=== PATIENT | female | born 1975 | race Two or more races ===

== ENCOUNTER 2017-02-16 20:30 | Emergency (ER) | payer OTHER ==
[~2017-02-16] VITALS: Ht 162.6 cm; Wt 90.9 kg
[~2017-02-16 20:30] MED LIST: GABA100C PO; LEVO125T50 PO; MELO15TA14 PO; NPR250T1 PO; TYL325 PO
[2017-02-16 20:38] VITALS: BP 129/89; PULSE 64; RESP 15; O2SAT 97
[2017-02-16] MEDS ORDERED: Albuterol-Ipratropium 3 mL Inhalation Solution ONE (22:00)
[2017-02-16 22:08] VITALS: PULSE 76; RESP 18; O2SAT 99
[2017-02-16] MEDS ORDERED: Albuterol 2.5 mg/3 mL Inhalation Solution NEB ONE ×2 (22:13→22:15)
[2017-02-16] MEDS ORDERED: 0.9% Sodium Chloride 1,000 ML IV ONE (22:13)
[2017-02-16] MEDS ORDERED: MethylprednisoLONE Sodium Succinate 62.5 mg/mL 2 mL Inj IVPUSH ONE (22:15)
[2017-02-16 22:17] VITALS: PULSE 79; RESP 22; O2SAT 99
--- NOTE | 2017-02-16 22:26 | ED.REPORT ---
HPI-General Illness Date of Service Feb 16, 2017 ED Provider: Rolando Bellamy MD Patient is a 41 year old female with a history of asthma and hypertension who presents to the ED complaining of shortness of breath onset a week ago. Associated symptoms per the patient's spouse include an intermittent low grade fever, weakness and a productive cough with yellow sputum. She denies abdominal pain or vomiting. The patient's spouse reports that she has gotten progressively worse throughout the week. Patient states that she was seen when this first began and was given one dose of Prednisone. Nursing Notes Stated Complaint: ASTHMA, COUGHING, TROUBLE BREATHING Chief Complaint: Respiratory Complaints Nursing Notes Reviewed: Yes Allergies: Coded Allergies: No Known Allergies (Verified , 06/28/16) Scheduled Acetaminophen-Expunged Drug, Do Not Renew! (Tylenol-Expunged Drug, Do Not Renew! ) 325 Mg Tablet 650 MG PO Q4HP Azithromycin (Zithromax (Z-Jay)) 250 Mg Tablet 250 MG PO DIRECTED Take two tablets by mouth on day 1, then take one tablet daily on days 2 through 5. Gabapentin-Expunged Drug, Do Not Renew! (Neurontin-Expunged Drug, Do Not Renew! ) 100 Mg Capsule 100 MG PO TID Levothyroxine-Expunged Drug, Do Not Renew! (Levoxyl-Expunged Drug, Do Not Renew! ) 125 Mcg Tablet 125 MCG PO DAILY Naproxen-Expunged Drug, Do Not Renew! (Naprosyn-Expunged Drug, Do Not Renew!) 250 Mg Tab 750 MG PO BID Prednisone (PredniSONE) 20 Mg Tablet 60 MG PO DAILY Scheduled PRN Albuterol Neb Soln (Albuterol Neb Soln) 2.5 Mg/3 Ml Vial.neb 2.5 MG INHALATION Q4H PRN PRN For Cough Meloxicam-Expunged Drug, Do Not Renew! (Mobic-Expunged Drug, Do Not Renew!) 15 Mg Tablet 15 MG PO DAILY PRN PRN General Time Seen by MD: 22:07 Chief Complaint Breathing problem Hx Obtained From: Patient, Spouse Arrived By: Walk-in Sudden in Onset?: Yes Onset Occurred: 1 week ago Symptom Duration: Since onset Recent Healthcare: No recent hospitalization, Recent doctor visit Similar Sx Previous: No Past Medical History Past Medical History Generally healthy otherwise Reports: Asthma, Hypertension Reports: Thyroid disease Past Surgical History Ovarian cyst removed Reports: Smoking History Never Smoker Social History Alcohol Use: Denies alcohol use Drug Use: Denies drug use Other Social History: Good social support Ambulatory Status Independent Review of Systems Full Review of Systems Constitutional: Reports: Fever, Weakness - generalized, Denies: Chills Respiratory: Reports: Prod cough, yellow, Shortness of breath GI: Denies: Abdominal pain, Nausea, Vomiting Skin: Denies Itching, Denies Rash Complete sys rev & neg: except as marked. Physical Exam Vital Signs Vital Signs Date Time Temp Pulse Resp B/P Pulse Ox O2 Delivery O2 Flow Rate FiO2 02/17/17 00:01 37.1 96 18 128/82 96 Room Air 02/16/17 22:42 89 17 136/96 98 Room Air 02/16/17 22:17 79 22 99 Room Air 02/16/17 22:08 76 18 99 Room Air 02/16/17 20:38 37.1 64 15 129/89 97 Room Air Initial VS: Reviewed General/Constitutional: Awake, Alert, No acute distress Head / Eyes: Atraumatic, Normocephalic, PERRL, EOMI Respiratory / Chest: Atraumatic, No respiratory distress no audible wheezes diminished breath sounds breathing at the top of the breathing cycle Cardiovascular: Heart rate NL, Regular rhythm, Heart sounds NL Abdomen: Atraumatic, Soft, Non-tender Upper Extremities Upper Extremity / MS: Atraumatic, Full range of motion Skin: Atraumatic, Color NL, No rash, Warm, Dry Neurologic: Oriented X3, Speech NL, No motor deficits, No sensory deficits Psychiatric: Affect NL, Mood NL Interpretation & Diagnostics Lab Results Interpretation Result Diagram: 02/16/174 02/16/17 2244 Test 02/16/17 22:44 02/16/17 22:46 White Blood Count 11.0th/mm3 (3.8-10.1) Red Blood Count 5.30mil/mm3 (3.90-5.20) Hemoglobin 14.5g/dL (12.0-15.6) Hematocrit 43.8% (35.0-46.0) Mean Corpuscular Volume 82.6fL (81-100) Mean Corpuscular Hemoglobin 27.4pg (27.0-35.0) Mean Corpuscular Hemoglobin Concent 33.1% (32.0-37.0) Red Cell Distribution Width 14.4% (12.3-15.4) Platelet Count 270bil/L (150-400) Neutrophils (%) (Auto) 55.9% (40-74) Lymphocytes (%) (Auto) 37.7% (14-46) Monocytes (%) (Auto) 3.4% (4-12) Eosinophils (%) (Auto) 2.6% (0-5) Basophils (%) (Auto) 0.2% (0-3) Sodium Level 137mEq/L (134-144) Potassium Level 5.1mEq/L (3.5-5.2) Chloride Level 98mEq/L (97-108) Carbon Dioxide Level 19mmol/L (18-29) Blood Urea Nitrogen 15mg/dL (6-20) Creatinine 0.65mg/dL (0.57-1.00) Estimat Glomerular Filtration Rate 145mL/min (>59) Glucose Level 95mg/dL (60-99) Calcium Level 8.9mg/dL (8.5-10.1) Magnesium Level 1.9mg/dL (1.6-2.6) Total Bilirubin 0.2mg/dL (0.0-1.2) Aspartate Amino Transf (AST/SGOT) 22U/L (0-50) Alanine Aminotransferase (ALT/SGPT) 5U/L (0-32) Alkaline Phosphatase 88U/L (25-150) Pro-B-Type Natriuretic Peptide 29.65pg/mL (0-130) Total Protein 0.2g/dL (6.4-8.4) Albumin 4.0g/dL (3.4-5.0) Procalcitonin 0.02ng/mL (0.00-0.08) Hold Crawford Top Tube Received (Received) X-Ray Chest Interpretation Chest Xray Interpretation: small streaking present View: Portable, 1 view Interpretation / Wet Read by: Wet read ED physician Re-Eval/Medical Decision Med Decision/Clinical Course 41-year-old history of asthma presents with an exacerbation setting or cold. She has had low-grade fever, persistent cough not much treated with Tessalon Perles previously. She has not been on steroids with this bout. Begun out of prednisone sixty a day for six days, ongoing nebulizers, and azithromycin Z-Jay course. X-ray tonight is a faint strand of left lower lobe infiltrate, and given her subjective febrile state and persistent course, we will treat empirically with azithromycin. Time of Eval: 23:46 Patient Status: Condition improved Re-Evaluation/Progress Note: Discussed X-ray results and plan for discharge. Patient understands and agrees to the plan. All questions were addressed. Counseled Regarding: Diagnosis, Lab results, Need for follow-up, When/why to return to ED Discharge & Departure Primary Impression: Asthma Asthma severity: moderate persistent Asthma complication type: with acute exacerbation Qualified Code: J45.41 - Moderate persistent asthma with (acute) exacerbation Additional Impressions: Acute asthma exacerbation Asthma severity: moderate persistent Qualified Code: J45.41 - Moderate persistent asthma with (acute) exacerbation Bronchitis Disposition: Home Discharge Condition All VS Reviewed: Yes Condition: Stable Patient Instructions: Acute Bronchitis (ED), Asthma (ED) Additional Instructions: Begin prednisone three tablets daily for six days. Then stop. Call your doctor in the morning for follow-up this week. Tessalon Perles up to three times daily if needed for cough. Azithromycin one tablet daily for four more days. Drink plenty of fluids and stay well-hydrated. Return if you worsen despite treatment. Avoid smoke, perfumes, and any other materials that appear to set you off. Referrals: Tony Alex MD (PCP) Brigitteibe Attestation Portions of this note were transcribed by Carlotta Meneses. I, Dr. Bellamy personally performed the history, physical exam and medical decision-making; I reviewed and confirmed the accuracy of the information in the transcribed note. Signed by: Boone Alarcon, 02/16/17 and 2300 copies to: Tony Alex MD, Christopher W MD Feb 16, 2017 22:26 Anamika Meneses Feb 16, 2017 23:00
[2017-02-16 22:42] VITALS: BP 136/96; PULSE 89; RESP 17; O2SAT 98
[2017-02-16 22:48] LABS: BASOPHILS % (AUTO) 0.2 % (0-3); EOSINOPHILS % (AUTO) 2.6 % (0-5); MONOCYTES % (AUTO) 3.4 % (4-12); Mean Corpuscular Hemoglobin 27.4 pg (27.0-35.0); Mean Corpuscular Volume 82.6 fL (81-100); NEUTROPHILS % (AUTO) 55.9 % (40-74); Platelet Count 270 bil/L (150-400)
[2017-02-16 23:40] LABS: Magnesium 1.9 mg/dL (1.6-2.6)
[2017-02-16] MEDS ORDERED: AZIT250T4 PO (23:52)
[2017-02-16] MEDS ORDERED: ALBU2.5V4 INHALATION (23:52)
[2017-02-16] MEDS ORDERED: PRE20 PO (23:52)
[2017-02-17 00:01] VITALS: BP 128/82; PULSE 96; RESP 18; O2SAT 96
--- NOTE | 2017-02-17 08:21 | DRSVH ---
PROCEDURE: X-RAY CHEST, TWO VIEWS ([id number]) INDICATIONS: cough, sob, fever TECHNIQUE: 2 views of the chest were acquired. COMPARISON: [facility], CR, XR CHEST 2VW, 06/04/2016, 8:23. FINDINGS: Surgical changes and devices: None. Lungs and pleura: No pleural effusions or pneumothorax. Lungs are clear. Mediastinum: Mediastinal contours are normal. Heart size is normal. Bones and chest wall: No suspicious bony abnormalities. Soft tissues appear unremarkable. IMPRESSION: No acute cardiopulmonary findings. Dictated by: Rochelle Breaux M.D. on 02/17/2017 at 8:19 Approved by: Rochelle Breaux M.D. on 02/17/2017 at 8:20
== END 2017-02-17 00:02 | disposition home or self-care (01) ==
LOC: SED 20:30
DX: J45.41 Moderate persistent asthma with (acute) exacerbation (principal); I10 Essential (primary) hypertension
CPT/HCPCS: 36415; 71020; 80053; 83735; 83880; 84145; 85025; 87040; 96361; 96374; 99285; J2930; J7030; J7613; J7620

== ENCOUNTER 2017-04-09 12:28 | Emergency (ER) | payer OTHER ==
[~2017-04-09] VITALS: Ht 162.6 cm; Wt 93.2 kg
[~2017-04-09 12:28] MED LIST changes: +ALBU2.5V4 INHALATION; +AZIT250T4 PO; +PRE20 PO
[2017-04-09 12:44] VITALS: BP 132/89; PULSE 77; RESP 18; O2SAT 99
--- NOTE | 2017-04-09 13:34 | ED.REPORT ---
HPI-Abd Pain F Under 42 Date of Service Apr 09, 2017 ED Provider: Maribel Portillo MD The pt is a 41 y/o female w/ a hx of R ovarian cysts and HTN, asthma, thyroid disease, and a presenting to the ED from urgent care due to RLQ abdominal pain beginning this morning. The pain is described as stabbing, and she has taken 3 ibuprofen w/o relief. Denies dysuria, pain w/ bowel movement, nausea, vomiting, diarrhea, fevers, and chills. Her LMP began 1 day ago. She describes usually feeling pain during her menstrual periods but the pain being much more severe this time. She is not using any control at this time. Nursing Notes Stated Complaint: ABD PAIN Chief Complaint: Female Abdominal Pain Nursing Notes Reviewed: Yes Allergies: Coded Allergies: No Known Allergies (Verified , 06/28/16) Scheduled Acetaminophen-Expunged Drug, Do Not Renew! (Tylenol-Expunged Drug, Do Not Renew! ) 325 Mg Tablet 650 MG PO Q4HP Azithromycin (Zithromax (Z-Jay)) 250 Mg Tablet 250 MG PO DIRECTED Take two tablets by mouth on day 1, then take one tablet daily on days 2 through 5. Gabapentin-Expunged Drug, Do Not Renew! (Neurontin-Expunged Drug, Do Not Renew! ) 100 Mg Capsule 100 MG PO TID Levothyroxine-Expunged Drug, Do Not Renew! (Levoxyl-Expunged Drug, Do Not Renew! ) 125 Mcg Tablet 125 MCG PO DAILY Naproxen-Expunged Drug, Do Not Renew! (Naprosyn-Expunged Drug, Do Not Renew!) 250 Mg Tab 750 MG PO BID Prednisone (PredniSONE) 20 Mg Tablet 60 MG PO DAILY Scheduled PRN Albuterol Neb Soln (Albuterol Neb Soln) 2.5 Mg/3 Ml Vial.neb 2.5 MG INHALATION Q4H PRN PRN For Cough Meloxicam-Expunged Drug, Do Not Renew! (Mobic-Expunged Drug, Do Not Renew!) 15 Mg Tablet 15 MG PO DAILY PRN PRN General Time Seen by MD: 13:17 Chief Complaint Abdominal pain (RLQ ) Hx Obtained From: Patient, Spouse Arrived By: Walk-in Sudden in Onset?: Yes Onset Occurred: 1 - 4 hours ago Symptom Duration: Since onset Recent Healthcare: No recent hospitalization, Recent doctor visit Similar Sx Previous: Yes Past Medical History Past Medical History Generally healthy otherwise Reports: Asthma, Hypertension Reports: Thyroid disease Past Surgical History R Ovarian cyst removed Reports: Smoking History Never Smoker Social History Alcohol Use: Denies alcohol use Drug Use: Denies drug use Other Social History: Good social support Ambulatory Status Independent Review of Systems Denies pain w/ bowel movements; Constitutional: Denies: Chills, Fever GI: Reports: Abdominal pain (RLQ ), Denies: Diarrhea, Nausea, Vomiting Female: Denies: Dysuria Complete sys rev & neg: except as marked. Physical Exam Initial Vital Signs Vital Signs (First) Date Time Temp Pulse Resp B/P Pulse Ox O2 Delivery O2 Flow Rate FiO2 04/09/17 12:44 36.6 77 18 132/89 99 Initial VS: Reviewed Head / Eyes: Atraumatic, Normocephalic, PERRL ENT: Mucous membranes moist, Conjunctiva normal, No scleral icterus Neck: Supple, Non-tender, Full range of motion Extremities: Vascular intact, Neuro intact, No swelling, No tenderness Skin: Warm, Dry, No cyanosis Neurologic: Alert, Oriented, Nonfocal Psychiatric: Mood/affect normal, Behavior normal, Normal thought content General/Constitutional: Awake, Alert Respiratory / Chest: Atraumatic, Breath sounds NL, Breath sounds = bilat Cardiovascular: Heart rate NL, Regular rhythm, Heart sounds NL Abdomen: Soft, BS normoactive Severe RLQ tenderness w/ rebound and guarding Back: Atraumatic, Full range of motion Interpretation & Diagnostics Lab Results Interpretation Test 04/09/17 14:37 Urine Color Straw (YELLOW) Urine Appearance Hazy (CLEAR,HAZY) Urine pH 6.5 (5.0-8.0) Urine Specific [place] 1.010 (1.003-1.035) Urine Protein Negativemg/dL (NEG,TRACE) Urine Glucose (UA) Negativemg/dL (NEGATIVE) Urine Ketones Negativemg/dL (NEGATIVE) Urine Occult Blood Large (NEGATIVE) Urine Nitrite Negative (NEGATIVE) Urine Bilirubin Negative (NEGATIVE) Urine Urobilinogen Normalmg/dL (NORMAL) Urine Leukocyte Esterase Negative (NEGATIVE) Urine RBC 11-50/hpf (0-2) Urine WBC 0-5/hpf (0-5) Urine Epithelial Cells Occasional/hpf (NONE-MOD) Urine Crystals None seen (NONE SEEN) Urine Bacteria None/hpf (NONE-FEW) Urine Hyaline Casts None/lpf (NONE) Urine Granular Casts None seen (NONE SEEN) Urine Waxy Casts None seen (NONE SEEN) Urine Red Blood Cell Casts None seen (NONE SEEN) Urine White Blood Cell Casts None seen (NONE SEEN) Urine Mucus None seen (None Seen) Urine Trichomonas None seen (NONE SEEN) Urine Yeast None (NONE SEEN) Urinalysis Comment None Urine Culture Reflexed Not indicated Re-Eval/Medical Decision Med Decision/Clinical Course Med Decision/Clinical Course: difficulty with IV access and getting blood. Negotiated u/s first - if + for ovarian cyst/ruptured/torsion and -appy, will treat accordingly. If necessary will reorder blood work. This plan is negoiated with pt and relayed to Dr Justin at change of shift. Source of Hx: Old records Counseled Regarding: Diagnosis, Lab results Discharge & Departure Shift Change Sign-Out Patient Care Transferred: Yes Discussed Complaint(s): Yes Laboratory Evaluation: Ordered, not yet done Primary Impression: Right lower quadrant pain Discharge Condition All VS Reviewed: Yes Condition: Stable Referrals: Tony Alex MD (PCP) Care Transferred to: Dr. Justin Care Transferred at: 15:00 Scribe Attestation Portions of this note were transcribed by Nirmal Hussein. I, Dr. Portillo personally performed the history, physical exam and medical decision-making; I reviewed and confirmed the accuracy of the information in the transcribed note. copies to: Tony Alex MD, Shawna L MD Apr 09, 2017 13:34 Nirmal Hussein Apr 09, 2017 13:50
[2017-04-09] MEDS ORDERED: HYDROmorphone 0.5 mg/0.5 mL iSecure Syringe IVPUSH PRN (13:40)
[2017-04-09 14:57] LABS: APPEARANCE,URINE HAZY (CLEAR,HAZY); COLOR,URINE STRAW (YELLOW); OCCULT BLOOD,URINE LARGE (NEGATIVE); PH,URINE 6.5 (5.0-8.0); UROBILINOGEN,URINE NORMAL (NORMAL)
--- NOTE | 2017-04-09 16:35 | DRSVH ---
PROCEDURE: US PELVIC SONOGRAM + TRANSVAGINAL SONOGRAM INDICATIONS: Right lower quadrent pain TECHNIQUE: Real-time scanning was performed of the pelvic organs, with image documentation. Additional endovagi nal scanning was necessary due to incomplete visualization of the adnexal and endometrial structures by transabdominal scanning. COMPARISON: [facility] Ultrasound, US, US PELVIC+TRANSVAG, 09/11/2016, 15:05. FINDINGS: (orthogonal measurements) Uterus size: 9.65 cm, 5.11 cm, 6.41 cm Endometrium thickness: 5.40 mm Right ovary size: 1.97 cm, 4.90 cm, 2.06 cm Left ovary size: 3.00 cm, 4.93 cm, 2.43 cm Transabdominal scanning: Limited scanning through the kidneys shows no hydronephrosis. No pathologi c free abdominal or pelvic fluid. Endovaginal scanning: Uterus: Uterus is normal in size and appearance. Endometrium is within normal physiologic limits. 2 mm endometrial cyst present. Posterior intramural fibroid present measuring 2.2 x 1.6 x 2.2 cm harjinder lar to prior examination. Ovaries: Within normal physiologic limits. Appendix is not visualized and cannot be evaluated. IMPRESSION: 1. 2 mm endometrial cyst present and no change in posterior intramural fibroid. 2. Normal appearance the ovaries bilaterally. 3. The appendix is not visualized and cannot be evaluated. Dictated by: Sherwin Ridley Yon Interpreted: Ronnell Cary MD on 04/09/2017 at 16:25 Approved by: Ronnell Cary M.D. on 04/09/2017 at 16:33
[2017-04-09 16:39] LABS: BASOPHILS % (AUTO) 0.3 % (0-3); EOSINOPHILS % (AUTO) 3.3 % (0-5); MONOCYTES % (AUTO) 3.8 % (4-12); Mean Corpuscular Hemoglobin 27.5 pg (27.0-35.0); Mean Corpuscular Volume 82.8 fL (81-100); NEUTROPHILS % (AUTO) 59.7 % (40-74); Platelet Count 211 bil/L (150-400)
[2017-04-09 17:05] LABS: Magnesium 1.9 mg/dL (1.6-2.6)
[2017-04-09 18:04] VITALS: BP 142/91; PULSE 76; RESP 18
--- NOTE | 2017-04-09 18:37 | DRSVH ---
PROCEDURE: CT ABDOMEN AND PELVIS WITH CONTRAST ([id number]) INDICATIONS: RLQ pain nondiagnostic US TECHNIQUE: After the administration of intravenous contrast, 5 mm thick sections acquired from the diaphragm to the symphysis. 5 mm coronal and sagittal reformats were acquired. For radiation dose reduction, the following was used: automated exposure control, adjustment of mA and/or kV according to patient siz e. COMPARISON: [facility], CT, ABD/PELVIS W/CON (PN), 05/21/2012, 21:27. FINDINGS: Image quality: Excellent. ABDOMEN: Lung bases: Lung bases are clear. Heart size is normal. Solid organs: Liver and spleen are normal in size and enhancement. Gallbladder negative. Biliary s ystem is non dilated. Pancreas enhances normally. No adrenal nodules. Kidneys demonstrate normal s ize and enhancement, without hydronephrosis. Peritoneum and bowel: Bowel loops demonstrate normal wall thickness and caliber. No free fluid or a ir. Appendix appears normal. Nodes and vessels: No retroperitoneal or mesenteric adenopathy by size criteria. Aorta and inferior vena cava are normal in size. Miscellaneous: No ventral hernias. PELVIS: Genitourinary: Bladder wall thickness is normal. Miscellaneous: No inguinal hernias or adenopathy. Bones: No suspicious bony lesions. No vertebral body compression fractures. IMPRESSION: No acute abnormality. Normal appearance of the appendix. Dictated by: Noel Negrete M.D. on 04/09/2017 at 18:33 Approved by: Noel Negrete M.D. on 04/09/2017 at 18:35
[2017-04-09 19:11] VITALS: BP 141/93; PULSE 71; RESP 16; O2SAT 99
== END 2017-04-09 19:10 | disposition home or self-care (01) ==
LOC: SED 12:28
DX: R10.31 Right lower quadrant pain (principal); I10 Essential (primary) hypertension; J45.909 Unspecified asthma, uncomplicated
CPT/HCPCS: 36415; 74177; 76830; 76856; 80053; 81000; 81025; 83690; 83735; 85025; 96374; 99285; J1885; Q9967